=== PATIENT | female | born 1975 | race Caucasian/White ===

== ENCOUNTER 2023-08-01 13:48 | Outpatient (AMB) | payer BC, SELFPAY ==
--- NOTE | 2023-08-01 13:59 | HO.SPINEOV ---
Intake Intake Visit Reasons: Neck pain Intake Note: Mrs. Draper is here today c/o neck pain. MRI done @ [place]. 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 She has been seen at your office and underwent a series of what looks like trigger point injections and facet blocks for chronic neck pain has been going on for over year. The symptoms are located in the back of the neck, started the top of the neck at the junction of the skull and radiate down across the shoulders laterally. She does not really have any significant radicular arm pain to report. She does get a little bit of tingling in her hands from time to time. Her hands feel like they have lost a little bit of strength. The pain will be present all throughout the day, and can be present at night as well. She tries different positions at night to try to get some sleep but ultimately she ends up waking up. She takes Tylenol and Motrin. She had been going to chiropractor and has done extensive physical therapy as well. At this point she is feeling the pain all day and it is significantly affecting her quality of life. PMH: She was recently diagnosed with Sjogren's syndrome. That gave her body aches and dry mouth. She has been on Plaquenil and occasional oxaprozin to help manage the symptoms. She has a history of hypertension, 2 C sections, gallbladder surgery, abdominal plasty, gastrocnemius release. Denies any heart attacks, strokes, bleeding disorders, pulmonary problems or kidney issues. Social hx: She does not smoke, she works as a special needs counselor. She drinks occasionally, does not use any recreational marijuana Medications: Synthroid, lisinopril, Plaquenil, iron supplementation, oxaprozin, Zoloft, nortriptyline Allergies: Penicillin Physical exam: She is awake alert oriented no acute distress, she has full strength of bilateral upper lower extremities. She has 3+ symmetric reflexes throughout the upper lower extremities. Negative Jerman sign. Positive Tinel's and positive Phalen's, worse on the left. Imaging review: Cervical MRI done at [place] shows that the patient has degenerative disc disease of the cervical spine, worse at C6-7 where there is neuroforaminal narrowing, worse on the right. She has mild central canal stenosis. She has mild degenerative disc disease at C5-6 as well. Impression: 47-year-old female presents to the office today for evaluation of chronic neck pain for over year which starts in the back of her head radiates down the sides of her neck over her trapezius. She has no significant radicular arm pain to report. She has done numerous rounds of conservative treatment. She is due for an upcoming C7-T1 epidural. Her MRI shows that the most significant disc degeneration is at C6-7. I am wondering if maybe would be possible to inject that area as well. I will defer that to your team, but in terms of surgical decision making it would help us to know if this is indeed the area that is causing her symptoms as it is the main degenerative disc that we see in her neck. In terms of surgical solutions, she understands that finding the source of her neck pain can be challenging and that the success rates for surgery can be limited for strictly neck pain and cervical degenerative disc disease. I would like to get a set of flexion-extension x-rays on her, and see her back after the epidural injection and re-evaluate. If she has some improvement with the injection I think this would give us more leverage to justify surgery. Thank you for allowing us to care for your patient. The total time spent with this visit with this patient was 45 minutes reviewing history, physical exam, cervical spine imaging review, and implementation of treatment plan or further diagnostic testing Riky Mackenzie MD,PhD [facility] Orders: Orders XR cervical spine 4V Today M54.2 - Cervicalgia Coding Level of Care Code New Pt Level 4 (60867) Diagnoses Neck pain M54.2
== END 2023-08-01 14:29 | disposition home or self-care (01) ==
PROVIDERS: PCP Physician Assistant Medical; Visit Provider Physician Assistant
DX: M54.2 Cervicalgia (principal)
CPT/HCPCS: 99204

== ENCOUNTER 2023-08-01 13:48 | Outpatient (REF) | payer BC, SELFPAY | END 2023-08-01 13:49 | disposition home or self-care (01) | LOC: HO.HOSX 13:48 | PROVIDERS: PCP Physician Assistant Medical; Visit Provider Physician Assistant | DX: M54.2 Cervicalgia (principal) | CPT/HCPCS: 72050 ==

== ENCOUNTER 2023-09-05 15:27 | Outpatient (AMB) | payer BC, SELFPAY ==
--- NOTE | 2023-09-05 15:30 | MHC.OFFVIS ---
Intake Intake Visit Reasons: injection follow up Customer Engineer Required: No Assessment & Plan Assessment & Plan (1) Neck pain: Code(s): M54.2 - Cervicalgia Plan Mrs Draper is back in the office today to review her situation with posterior neck pain. She underwent an injection at [place] and [employer]. She has not sure what cervical spinal level they injected but it did give her good relief and took her pain down to a level that is manageable. Her is currently recovering from hip surgery so she has been helping him get out of bed so it has been slightly worse this week. She still has no radicular pain. We reviewed her MRI at [place] and her x-rays at [facility] again. The most significant finding that we see is the disc degeneration at C6-7. This could be the source of her neck pain but we talked about the fact that neck pain can be elusive to find the diagnosis and that often discogenic findings can be normal. Therefore would be very helpful to know if the relief that she got from the injection was in the area where she has the most degeneration. That can give us a little more reassurance that an operation would be helpful. She is going to find out from their office tomorrow as she has a follow-up visit and will call us to let us know. We will discuss further options after that. Total amount of time spent in this visit was 20 minutes in discussion of symptoms, cervical MRI imaging results and subsequent plan of care Riky Mackenzie MD,PhD [facility] Coding Level of Care Code Est Pt Level 3 (84238) Diagnoses Neck pain M54.2
== END 2023-09-05 16:41 | disposition home or self-care (01) ==
PROVIDERS: PCP Physician Assistant Medical; Visit Provider Physician Assistant
DX: M54.2 Cervicalgia (principal)
CPT/HCPCS: 99213

== ENCOUNTER → 2023-09-05 15:27 | Outpatient (BNVA) | payer BC, SELFPAY | PROVIDERS: PCP Physician Assistant Medical; Visit Provider Physician Assistant ==

== ENCOUNTER 2023-09-17 14:49 | Outpatient (AMB) | payer BC, SELFPAY ==
--- NOTE | 2023-09-17 14:51 | A.OFFVIS_ITS ---
Intake Intake Visit Reasons: discuss sx options Clinical Care Coordinator Required: No Assessment & Plan Assessment & Plan (1) Neck pain: Code(s): M54.2 - Cervicalgia Plan Mrs Draper is back today to review surgical options for her chronic neck pain. Please see the specifics of her problem from the previous notes and discussions in our system. Dr. Mackenzie and I met with her, we reviewed her imaging again done at [place] and this shows a degenerative disc at C6-7 which is disproportionately an accelerated degeneration given her age. It is the only significantly degenerative disc that we see in her neck. Dr. Mackenzie believes she is a good candidate for C6-7 artificial disc replacement. Pt was given risk and benefits of surgery including but not limited to infection, hematoma , nerve injury,durotomy, weakness,bowel/bladder injury, persistent pain, vocal hoarseness, fusion of the implanted artificial disc as well as the option to continue with conservative treatment and patient wishes to proceed with surgery. Pt is aware they should stop their motrin, aspirin 7 days prior to surgery. All questions were answered to the best of our ability. If there is anything about this patients medical history that we have overlooked or concerns you have about us proceeding with surgery we would appreciate any input you can offer. Total amount of time spent in this visit was 20 minutes in discussion of symptoms, cervical MRI imaging results and subsequent plan of care Riky Mackenzie MD,PhD [facility] Coding Level of Care Code Est Pt Level 3 (27566) Diagnoses Neck pain M54.2
== END 2023-09-17 15:08 | disposition home or self-care (01) ==
PROVIDERS: PCP Physician Assistant Medical; Visit Provider Physician Assistant
DX: M54.2 Cervicalgia (principal)
CPT/HCPCS: 99213

== ENCOUNTER → 2023-09-17 14:49 | Outpatient (BNVA) | payer BC, SELFPAY | PROVIDERS: PCP Physician Assistant Medical; Visit Provider Physician Assistant ==

== ENCOUNTER → 2023-11-01 14:05 | Outpatient (BNV) | payer BC, SELFPAY | PROVIDERS: PCP Physician Assistant Medical; Visit Provider Internal Medicine | DX: I10 Essential (primary) hypertension (principal); Z01.810 Encounter for preprocedural cardiovascular examination; M54.2 Cervicalgia | CPT/HCPCS: 93010 ==

== ENCOUNTER 2023-11-11 05:52 | Day surgery (SDC) | payer BC, SELFPAY ==
--- NOTE | 2023-11-01 | ECG_ITS ---
Test Reason : preop Blood Pressure : / mmHG Vent. Rate : 078 BPM Atrial Rate : 078 BPM P-R Int : 142 ms QRS Dur : 094 ms QT Int : 400 ms P-R-T Axes : 044 019 050 degrees QTc Int : 456 ms Normal sinus rhythm Normal ECG No previous ECGs available Referred By: Berta Cortez Electronically Signed By:WILMA FRANKLIN
[2023-11-01 13:30] VITALS: BP 117/73; PULSE 90; RESP 20; O2SAT 98; BMI 31.5
--- NOTE | ~2023-11-11 | FL_ITS ---
EXAMINATION: XR FLUOROSCOPY WITH IMAGES CLINICAL INFORMATION: C6-C7 total disc arthroplasty. COMPARISON: Radiographs dated 08/01/2023. TECHNIQUE: Fluoroscopy Supervised By: Dr. Eb Mackenzie. Fluoroscopy Time: 16.8 seconds. Cumulative Dose: 8.0218 mGy. DAP: 1.6796 Gycm2. Images: 3. FINDINGS: The submitted images are frontal and lateral radiographs obtained following C6-C7 total disc arthroplasty. Vertebral body numbering on the submitted lateral view is suboptimal. FL/FL guidance in OR IMPRESSION: Intraoperative fluoroscopic guidance is provided. C6-C7 total discs arthroplasty. Please see the patient's operative report
[2023-11-11 06:08] VITALS: BMI 31.0
[2023-11-11] MEDS: vancomycin HCL 1,500 MG in 0.9 % Sodium Chloride 500 ML 333.33 MG IV (06:28)
[2023-11-11] MEDS: Lactated Ringers 1,000 ML 100 ML IVCONT (06:28)
[2023-11-11] MEDS: methocarbamoL 750 MG TABLET PO (06:29)
[2023-11-11] MEDS: Gabapentin 300 MG CAPSULE PO (06:29)
[2023-11-11 06:34] VITALS: BP 151/100; PULSE 96; RESP 16; TEMP 36; O2SAT 96
--- NOTE | 2023-11-11 07:01 | P.HPSUR_ITS ---
Pre-Procedural Eval Section A - 24 Hr Update-Section A only Date of Service: 11/11/23 The patient is an INPATIENT: No Changes since office visit: No Cold of Flu in the past 2 weeks, No New Medical Problems, No Changes in Medication and No Patient answered all questions The patient has been examined within 24 hours of the surgical procedure. The History & Physical has been completed within 30 days and I have reviewed it.: No Section B - Complete if H&P > 30 days Chief Complaint: Cervicalgia Allergies: Allergies Allergy/AdvReac Type Severity Reaction Status Date / Time amoxicillin Allergy Hives Verified 11/11/23 06:04 sumatriptan Allergy Hives Verified 11/11/23 06:04 Review of Systems Sugical H&P ROS: Negative: Constitution, Cardiovascular, Respiratory, Neurological, Psychiatric, Hem-Onc, Allergic/Immunologic, Gastrointestinal, Genitourinary, Musculoskeletal, Integumentary, Endocrine and Eyes/E ars/Nose/Throat Exam Surgical H&P Exam: Not Evaluated: HEENT, Not Evaluated: Heart, Not Evaluated: Lungs, Not Evaluated: Extremities, Not Evaluated: Abdomen, Not Evaluated: Skin and Not Evaluated: Neurological Plan Diagnosis/Plan: Unchanged C6-7 total disk arthroplasty Time Spent With Patient Time: Total time managing care of this patient today __6__ minutes.
[2023-11-11] MEDS: ondansetron HCL 4 MG/2 ML VIAL IVPUSH (07:11)
--- NOTE | 2023-11-11 07:20 | HO.ANESPROP2 ---
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 Diet control. Reports increased GERD with past surgeries PMFSH Active Problems Active Problems: All Active Problems (Updated 11/01/23 @ 13:16 by Daniela Chavez RN) Neck pain (Acute) Past Medical History Medical History Hx of sigmoidoscopy Habitual snoring Graves disease Attention deficit hyperactivity disorder Impaired fasting glucose Multiple joint pain Chondromalacia of patella Sjogrens syndrome Rosacea Adhesion of intestine IBS (irritable bowel syndrome) GERD (gastroesophageal reflux disease) Raynauds phenomenon HTN (hypertension) Migraine Insomnia Anxiety Anemia Overweight Hyperlipidemia Vitamin B 12 deficiency Hypothyroidism Herpes zoster Family History Family history of problems with anesthesia: No Surgical History Surgical History History of surgery on lower extremity Hx of section History of abdominoplasty History of esophagogastroduodenoscopy (EGD) Hx of cholecystectomy History of dilatation and curettage History of Problems with Anesthesia: No Social History Social History Are you a primary post acute care registered nurse to a significant other at home: No Do you presently have visiting nurse or other home services: No Patient Tobacco Use Status: Never used Tobacco Use of substances other than those prescribed or required for medical reasons: No Have you been hit, kicked, punched, or otherwise hurt by someone within the past year? If so, by whom?: No Advance Directives: No Advance Directives Information Provided: Yes Advance Directives on File: No Recently lost weight without trying: No Eating poorly because of decreased appetite: No Nutrition Risks: No Nutritional Risk Patient : No : No Poor oral hygiene: No Meds Allergies Allergy/AdvReac Type Severity Reaction Status Date / Time amoxicillin Allergy Hives Verified 11/11/23 06:04 sumatriptan Allergy Hives Verified 11/11/23 06:04 Home Medications Medication Instructions Recorded Confirmed Last Taken Type ferrous sulfate 325 mg (65 mg 325 mg PO DAILY 10/31/23 11/11/23 11/10/23 History iron) tablet (iron) gabapentin 100 mg capsule 100 mg PO BEDTIME 10/31/23 11/01/23 11/10/23 History hydroxychloroquine 200 mg tablet 200 mg PO BID 10/31/23 11/11/23 11/11/23 History levothyroxine 175 mcg tablet 200 mcg PO DAILY 10/31/23 11/11/23 11/11/23 History lisinopril 10 mg tablet 10 mg PO DAILY 10/31/23 11/01/23 11/10/23 History metronidazole 0.75 % topical cream 1 appl topical DAILY PRN Skin 10/31/23 11/01/23 Unknown History Irritation naratriptan 1 mg tablet 1 mg PO DAILY PRN Migraine Headache 10/31/23 11/01/23 Unknown History nortriptyline 25 mg capsule 25 mg PO DAILY 10/31/23 11/01/23 11/10/23 History oxaprozin 600 mg tablet 600 - 1,200 mg PO DAILY PRN joint 10/31/23 10/31/23 Unknown History pain sertraline 50 mg tablet 75 mg PO DAILY 10/31/23 11/11/23 11/11/23 History Exam Height,Weight and Vital Signs: Height 5 ft 9 in Weight 96.615 kg Last Vital Signs Pulse 90 11/01/23 13:30 Resp 20 11/01/23 13:30 BP 117/73 11/01/23 13:30 Pulse Ox 98 11/01/23 13:30 O2 Del Method Room Air 11/01/23 13:30 Airway TM Dist: >3cm Neck ROM: Limited Loose/Missing/Broken Teeth: No (partial crown left lower) Heart: RRR Lungs: CTAB Assessment and Plan Assessment Anesthesia Assessment: Anesthesia Plan Discussed and PAT Visit Final Anesthetic Review Family History of Problems with Anesthesia: No History of Problems with Anesthesia: No Documented by User: Debbie Moon DO 11/11/23 08:13 HPI - Anesthesia Eval Consult details Narrative: 48yo F for C 6-7 Total Disc Arthroplasty. Has GERD but stopped omeprazole. Dry heaving in pre-op. Was given zofran 4mg by pre-op RN at 0711. 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 Diet control. Reports increased GERD with past surgeries PMFSH Past Medical History Medical History Hx of sigmoidoscopy Habitual snoring Graves disease Attention deficit hyperactivity disorder Impaired fasting glucose Multiple joint pain Chondromalacia of patella Sjogrens syndrome Rosacea Adhesion of intestine IBS (irritable bowel syndrome) GERD (gastroesophageal reflux disease) Raynauds phenomenon HTN (hypertension) Migraine Insomnia Anxiety Anemia Overweight Hyperlipidemia Vitamin B 12 deficiency Hypothyroidism Herpes zoster Family History Family history of problems with anesthesia: No Surgical History Surgical History History of surgery on lower extremity Hx of section History of abdominoplasty History of esophagogastroduodenoscopy (EGD) Hx of cholecystectomy History of dilatation and curettage History of Problems with Anesthesia: No Social History Social History Are you a primary post acute care registered nurse to a significant other at home: No Do you presently have visiting nurse or other home services: No Patient Tobacco Use Status: Never used Tobacco Use of substances other than those prescribed or required for medical reasons: No Have you been hit, kicked, punched, or otherwise hurt by someone within the past year? If so, by whom?: No Advance Directives: No Advance Directives Information Provided: Yes Advance Directives on File: No Recently lost weight without trying: No Eating poorly because of decreased appetite: No Nutrition Risks: No Nutritional Risk Patient : No : No Poor oral hygiene: No Meds Allergies Allergy/AdvReac Type Severity Reaction Status Date / Time amoxicillin Allergy Hives Verified 11/11/23 06:04 sumatriptan Allergy Hives Verified 11/11/23 06:04 Home Medications Medication Instructions Recorded Confirmed Last Taken Type ferrous sulfate 325 mg (65 mg 325 mg PO DAILY 10/31/23 11/11/23 11/10/23 History iron) tablet (iron) gabapentin 100 mg capsule 100 mg PO BEDTIME 10/31/23 11/01/23 11/10/23 History hydroxychloroquine 200 mg tablet 200 mg PO BID 10/31/23 11/11/23 11/11/23 History levothyroxine 175 mcg tablet 200 mcg PO DAILY 10/31/23 11/11/23 11/11/23 History lisinopril 10 mg tablet 10 mg PO DAILY 10/31/23 11/01/23 11/10/23 History metronidazole 0.75 % topical cream 1 appl topical DAILY PRN Skin 10/31/23 11/01/23 Unknown History Irritation naratriptan 1 mg tablet 1 mg PO DAILY PRN Migraine Headache 10/31/23 11/01/23 Unknown History nortriptyline 25 mg capsule 25 mg PO DAILY 10/31/23 11/01/23 11/10/23 History oxaprozin 600 mg tablet 600 - 1,200 mg PO DAILY PRN joint 10/31/23 10/31/23 Unknown History pain sertraline 50 mg tablet 75 mg PO DAILY 10/31/23 11/11/23 11/11/23 History Exam Exam Date and Time: November 11, 2023 0720 Height,Weight and Vital Signs: Height 5 ft 9 in Weight 96.615 kg Last Vital Signs Pulse 90 11/01/23 13:30 Resp 20 11/01/23 13:30 BP 117/73 11/01/23 13:30 Pulse Ox 98 11/01/23 13:30 O2 Del Method Room Air 11/01/23 13:30 Height 5 ft 9 in Weight 95.254 kg Vital Signs Pulse Rate 90 11/01/23 13:30 Respiratory Rate 20 11/01/23 13:30 Blood Pressure 117/73 11/01/23 13:30 Pulse Oximetry 98 11/01/23 13:30 Oxygen Delivery Method Room Air 11/01/23 13:30 Temperature 96.8 F 11/11/23 06:34 Pulse Rate 96 11/11/23 06:34 Respiratory Rate 16 11/11/23 06:34 Blood Pressure 151/100 H 11/11/23 06:34 Pulse Oximetry 96 11/11/23 06:34 Oxygen Delivery Method Room Air 11/11/23 06:34 Airway Mallampati Class: II TM Dist: >3cm Neck ROM: Limited Loose/Missing/Broken Teeth: No (patient has a crown but denies any loose or chipped teeth) Heart: S1S2 Assessment and Plan Final Anesthetic Review Family History of Problems with Anesthesia: No History of Problems with Anesthesia: No NPO: Yes ASA Class: II Final Preanesthetic Review: No Changes in Pt Med Stat, Meds/Allgs Chart Reviewed, Consent Obtained/Reviewed and Anes Risks/Benef Reviewed Patient Risk: Low Procedure Risk: Intermediate Anesthetic Plan Anesthetic Plan: GA and Agree w/ Assess. and Plan Disposition: Standard PACU
--- NOTE | 2023-11-11 09:00 | W.PM.OPN ---
Operative Note Operative Note Date of Service: 11/11/23 Narrative: Preoperative Diagnosis: Cervicalgia; C6-7 degenerative disc disease Procedure: C6-7 total disc arthroplasty; microscope Informed Consent was obtained for this operation. I have explained the nature, purpose and benefits of the operation. I have discussed the risks and benefit of the operation including possible complications or adverse events with patient/family. Alternative(s) were discussed with the patient with their relative benefits and risks as well as the consequences of not accepting the operation were included in obtaining consent. Surgeon: DEVYN JAMES MD, PHD Procedure Assisted By: Riky coker Description of Procedure: This patient is suffering from intractable neck pain. MRI shows degenerative disc disease C6-7. She was offered a artificial disc C6-7. The procedure complications were explained. The patient was consented. The patient was brought to the operating room and endotracheally intubated. The patient was put in supine position with slight extension of the neck. Prep and drape was done followed by timeout. A mid cervical incision was made followed by opening of the platysma. The prevertebral fascia was reached following the natural planes while the physician library media assistant provided manual retraction. The prevertebral fascia was opened to expose the disc space. A spinal needle was placed in the disk space to confirm the correct level with xray. The longus colli muscles were released bilaterally and a self retaining retractor was inserted. Two Platina pins were placed in the C6 and C7 vertebral bodies parallel to the endplates and distraction was give over the interspace. The discectomy was completed toward the posterior annulus of the disc. The microscope was brought in. The remainder of the discectomy was completed. The posterior ligament was opened and resected to expose the underlying dura. Osteophytes were resected from the body of C6 and C7 .Bilateral foraminotomies were done. Then a trial was inserted followed by final implant of [place] with the following diameter 17 x 14 x 5 mm height Final x-rays in AP and lateral projection showed a satisfactory position of the implant. The physician library media assistant took over. The Platina pin was removed. Hemostasis was done. He closed the incision in 2 layers with a 3-0 Vicryl. Steri-Strips used to approximate incision. An OpSite with Tegaderm was used to cover the incision. All sponge and needle counts were correct. Patient was extubated and transported in stable is to recovery room. Anesthesia: General Estimated Blood Loss (ml): 10 mL Duration of Surgery: 60 minutes Postoperative Plan: Discharge home Complications: None
--- NOTE | 2023-11-11 09:10 | PM.DS ---
DS: Providers Provider Date of Service: 11/11/23 Date of discharge: 11/11/23 Primary care physician: YOUNG Brady Admitting clinician: Jesus Mackenzie DS: Diagnosis Discharge Diagnosis (1) Neck pain: Status: Acute DS: Summary Time Attestation Discharge Coordination Time (in mins): 7 Quality: Safe Use of Opioids Does Pt have an Active Cancer Diagnosis on the Problem List?: No Quality: Stroke Does the patient have a stroke diagnosis?: No Physical Exam Vital Signs: Vital Signs: Last Vital Signs Temp 96.8 F 11/11/23 06:34 Pulse 96 11/11/23 06:34 Resp 16 11/11/23 06:34 BP 151/100 H 11/11/23 06:34 Pulse Ox 96 11/11/23 06:34 O2 Del Method Room Air 11/11/23 06:34 BMI result Body Mass Index 31.0 Discharge Plan Discharge Patient Disposition: Home, Self-Care Referrals: Jason Okeefe PA [Primary Care Provider] - 1 Week Discharge Medications: New oxycodone 5 mg tablet 5 mg PO Q4H PRN (Reason: pain) Qty: 20 0RF Rx Instructions: Partial Fill upon patient request. docusate sodium [Colace] 100 mg capsule 100 mg PO BID Qty: 20 0RF Continued levothyroxine 175 mcg tablet 200 mcg PO DAILY nortriptyline 25 mg capsule 25 mg PO DAILY ferrous sulfate [iron] 325 mg (65 mg iron) Tablet 325 mg PO DAILY lisinopril 10 mg tablet 10 mg PO DAILY metronidazole 0.75 % cream 1 appl topical DAILY PRN (Reason: Skin Irritation) gabapentin 100 mg capsule 100 mg PO BEDTIME hydroxychloroquine 200 mg tablet 200 mg PO BID oxaprozin 600 mg tablet 600 - 1,200 mg PO DAILY PRN (Reason: joint pain) sertraline 50 mg tablet 75 mg PO DAILY naratriptan 1 mg tablet 1 mg PO DAILY PRN (Reason: Migraine Headache) Discharge Orders: Discharge Order (Routine); Ordered 11/11/23 Ordered By: Riky Clayton Diet: Advance to usual diet Activity on Discharge: As tolerated Activity Restrictions/Additional Instructions: After your spinal surgery we ask you to observe the following restrictions/guidelines: Activity: It is normal to feel some discomfort as you increase your activity, but that will improve with time. We ask you avoid heavy lifting or acitivities that cause pain. As a general rule, 8lbs is a safe limit for lifting right after surgery. Walk as much as you feel comfortable but not to exhaustion. You will feel extra tired the first few days after surgery. Stay well hydrated. It is OK to walk up and down stairs You may return to driving when you are off narcotics (such as vicodin, oxycodone, dilaudid, etc), and you are back to normal functional capacity. If you have any concerns please check with office before driving. Return to work is specific to each patient and each surgery, so please speak with your doctor/PA at first follow up. Please bring paperwork such as FMLA at that time if you need it filled out. Medications: For optimum pain control, it is best to start with a combination of 500 mg of Tylenol every 4 hours with 600 mg of Motrin every 8 hours, and use narcotics as needed in between for breakthrough pain. We will give you a short supply of narcotics after surgery (usually one weeks worth). If you need more please call the office but do not use more than prescribed. You will need to give our office 48 hours notice if you need narcotics refilled and we do not fill narcotics on weekends or evenings. If you are on a narcotic, it is a good idea to take a stool softener such as colace or senna to avoid constipation If you take blood thinner such as aspirin, Plavix, Coumadin, Effient, Eliquis etc for conditions such as Afib, DVT, Pulmonary embolus, coronary disease, stents etc please speak with your surgeon about specific details as to when you can resume these medications. You can resume NSAIDs on post op day 1 (eg: Motrin, Naproxen, etc). Follow up: Please call the office, , after surgery to arrange a 3 week follow up for wound check. Wound Care: You may remove your dressing on the first day after surgery. ?You may ?leave open to air. Please do not remove the steri strips underneath. they will fall off on their own in one week. IT IS NORMAL FOR THE WOUND TO OOZE OR BE BLOODY FOR A FEW DAYS AFTER SURGERY. ?IF THIS HAPPENS JUST PLACE NEW DRESSING OVER IT TO AVOID STAINING CLOTHES. You may shower on post op day # 1 We ask that you do not let the water soak the wound. If it does get wet, just towel dry lightly. Please do not scrub your incision or place any type of chemical/ointment on the wound. No tub baths, pools or jacuzzis for one month. If you have any leaking or redness from your wound, or fevers, please call office
[2023-11-11 09:15] VITALS: BP 147/83; PULSE 90; RESP 16; TEMP 36.4; O2SAT 98
[2023-11-11 09:20] VITALS: BP 145/90; PULSE 89; RESP 16; O2SAT 98
[2023-11-11 09:25] VITALS: BP 157/87; PULSE 89; RESP 15; O2SAT 94
[2023-11-11 09:30] VITALS: BP 161/84; PULSE 91; RESP 16; O2SAT 92
[2023-11-11 09:45] VITALS: BP 146/76; PULSE 94; RESP 16; TEMP 36.2; O2SAT 95
== END 2023-11-11 10:40 | disposition home or self-care (01) ==
PROVIDERS: PCP Physician Assistant Medical; Visit Provider Neurological Surgery
PROC: (CPT 22856; principal; 2023-11-11 07:30)
DX: M50.323 Other cervical disc degeneration at C6-C7 level (principal); E05.00 Thyrotoxicosis with diffuse goiter without thyrotoxic crisis or storm; M35.00 Sjogren syndrome, unspecified; K21.9 Gastro-esophageal reflux disease without esophagitis; Z79.899 Other long term (current) drug therapy
CPT/HCPCS: 22856; 93005; C1776; J0131; J0330; J1100; J1170; J2250; J2405; J2704; J3010; J3371

== ENCOUNTER → 2023-11-11 05:52 | Outpatient (BNV) | payer BC, SELFPAY | PROVIDERS: PCP Physician Assistant Medical; Visit Provider Neurological Surgery | DX: M54.2 Cervicalgia (principal) | CPT/HCPCS: 22856; 99499 ==

== ENCOUNTER 2023-12-03 13:51 | Outpatient (AMB) | payer BC, SELFPAY ==
--- NOTE | 2023-12-03 13:57 | A.SPINEOV_ITS ---
Intake Visit Reasons: 1st post op Intake Note: Ms. Draper is here today for her 1st post-op appointment. Pack Out Operator Required: No Allergies amoxicillin Allergy (Verified 12/03/23 14:00) Hives sumatriptan Allergy (Verified 12/03/23 14:00) Hives Assessment & Plan Assessment & Plan (1) S/P cervical spinal fusion: Code(s): Z98.1 - Arthrodesis status Category: Surgical Plan Procedure: C6-7 total disc arthroplasty Nydia comes in today for her 1st postoperative visit. She reports she is satisfied with the surgery and feels better than she did pre-operatively. She still has suffering from some posterior neck pain but we discussed how this is likely result of the surgery. Most of our patients complaint of posterior trapezius pain due to the stress the surgery places on this muscle. She is encouraged this will likely resolve over time she continues to heal from her surgery. She has several questions regarding postoperative healing course. I answered these questions to the best of my ability. No new neurological deficits. Patient is able to ambulate well, rises from a seated position without difficulty. Incision site is closed, well healing, with no signs of drainage. We will follow-up with the patient in 6 weeks for her 2nd postoperative visit. At that time we will get x-rays to review with the patient. Martir Mackenzie MD,PhD [facility] Orders: Orders XR cervical spine 4V 12/03/23 Z98.1 - Arthrodesis status Coding Level of Care Code Global (07721) Diagnoses S/P cervical spinal fusion Z98.1
== END 2023-12-03 14:12 | disposition home or self-care (01) ==
PROVIDERS: PCP Physician Assistant Medical; Visit Provider Physician Assistant
DX: Z98.1 Arthrodesis status (principal)
CPT/HCPCS: 99024

== ENCOUNTER 2023-12-03 13:51 | Outpatient (REF) | payer BC, SELFPAY | END 2023-12-03 13:52 | disposition home or self-care (01) | LOC: HO.HOSX 13:51 | PROVIDERS: PCP Physician Assistant Medical; Visit Provider Physician Assistant | DX: Z13.89 Encounter for screening for other disorder (principal) ==

== ENCOUNTER 2024-01-14 13:52 | Outpatient (REF) | payer BC, SELFPAY ==
--- NOTE | ~2024-01-14 | XR_ITS ---
EXAMINATION: XR CERVICAL SPINE CLINICAL INFORMATION: Arthrodesis status COMPARISON: Cervical spine 08/01/2023 TECHNIQUE: 3 views of the cervical spine were obtained. FINDINGS: There is no fracture or subluxation. Prevertebral soft tissues are within normal limits. Again noted is C6-C7 total disc arthroplasty. The hardware appears intact. Disc space narrowing with marginal ossified formation is seen at C5-C6. There is no change in position or alignment of the cervical spine with flexion and extension. XR/XR cervical spine 4V IMPRESSION: 1. C6-C7 total disc arthroplasty without evidence of hardware complication. 2. Degenerative disc disease at C5-C6.
== END 2024-01-14 13:53 | disposition home or self-care (01) ==
LOC: HO.HOSX 13:52
PROVIDERS: PCP Physician Assistant Medical; Visit Provider Physician Assistant
DX: Z98.1 Arthrodesis status (principal)
CPT/HCPCS: 72050

== ENCOUNTER 2024-01-14 13:52 | Outpatient (AMB) | payer BC, SELFPAY ==
--- NOTE | 2024-01-14 14:12 | A.SPINEOV_ITS ---
Intake Visit Reasons: 2nd post op with Xrays Intake Note: Ms. Draper is here today for her 2nd post op appointment with xrays. Machine Design Engineer Required: No Allergies amoxicillin Allergy (Verified 12/03/23 14:00) Hives sumatriptan Allergy (Verified 12/03/23 14:00) Hives Assessment & Plan Assessment & Plan (1) S/P cervical spinal fusion: Code(s): Z98.1 - Arthrodesis status Category: Surgical Plan Procedure: C6-7 total disc arthroplasty Nydia comes in today for her 2nd postoperative visit. She states that overall she is doing well, but still has some aches and pains down again. She will have days where she has complete symptom relief, then will have other days where she still has pulling / nagging pains. She asked several questions during this visit regarding postoperative healing course including return to activity. We discussed how cardiovascular and body weight exercise we better than weightlifting at this point in time. She also asked questions regarding healthcare applications analyst. I do not think she should have a professional realigning her spine at this point in time as she is still healing from her cervical spine surgery. This was relayed to her. No new neurological deficits. Patient is able to ambulate well, rises from a seated position without difficulty. Anterior incision site is closed & well healed. Ondina is doing very well and there is no need for continued routine follow- up. She was encouraged to make an appointment with our office if she feels her healing is not progressing. We may consider around the physical therapy if that is the case. Martir Mackenzie MD,PhD [facility] Coding Level of Care Code Global (29448) Diagnoses S/P cervical spinal fusion Z98.1
== END 2024-01-14 14:32 | disposition home or self-care (01) ==
PROVIDERS: PCP Physician Assistant Medical; Visit Provider Physician Assistant
DX: Z98.1 Arthrodesis status (principal)
CPT/HCPCS: 99024